=== PATIENT | male | born 1970 | race Caucasian/White ===

== ENCOUNTER 2021-11-28 07:08 | Day surgery (SDC) | payer OTHER ==
[~2021-11-28] VITALS: Ht 177.8 cm; Wt 105.7 kg
[~2021-11-28 07:08] MED LIST: FISH1000 PO; NS 1,000 ML IV ONE; VITA100093 PO; VITMTA PO
[2021-11-28] MEDS ORDERED: LIDOCAINE 2% 100MG/5ML SDV (FOR ANES.) As Ordered ONE (07:10)
[2021-11-28] MEDS ORDERED: propofoL 200 MG/20 ML VIAL As Ordered ONE (07:10)
[2021-11-28 08:42] VITALS: BP 135/73
== END 2021-11-28 09:08 | disposition home or self-care (01) ==
LOC: M OPP 07:08
PROVIDERS: ATTEND Internal Medicine Gastroenterology
DX: Z12.11 Encounter for screening for malignant neoplasm of colon (principal); K64.0 First degree hemorrhoids; K63.89 Other specified diseases of intestine

== ENCOUNTER → 2022-09-22 | Outpatient (REF) | payer OTHER ==
[~2022-09-22] MED LIST changes: -NS 1,000 ML IV ONE
[2022-09-22 18:33] LABS: APPEARANCE, URINE HAZY (CLEAR); BACTERIA, URINE AUTO NEGATIVE (NEGATIVE); BILIRUBIN, URINE AUTO NEGATIVE (NEGATIVE); BLOOD, URINE BLOOD NEGATIVE (NEGATIVE); COLOR, URINE AMBER (YELLOW); GLUCOSE, URINE (UA) AUTO NEGATIVE (NEGATIVE); KETONE, URINE AUTO TRACE mg/dL (NEGATIVE); LEUKOCYTE ESTERASE, URINE AUTO NEGATIVE (NEGATIVE); MUCUS, URINE SMALL (NEGATIVE); NITRITE, URINE AUTO NEGATIVE (NEGATIVE); PROTEIN, URINE AUTO NEGATIVE (NEGATIVE); RBC, URINE AUTO 3 /HPF (0-3); SPECIFIC GRAVITY URINE AUTO 1.024 (1.002-1.035); SQUAMOUS EPITHELIAL CELL UR AU 0 /HPF (0-6); UROBILINOGEN, URINE AUTO 0.2 mg/dL (0.0-2.0); WBC, URINE AUTO 2 /HPF (0-3)
== END ==
LOC: M LAB REF 16:14
PROVIDERS: ATTEND Family Medicine
DX: Z01.818 Encounter for other preprocedural examination (principal)